=== PATIENT | male | born 1985 | race Caucasian/White ===

== ENCOUNTER 2020-10-09 11:26 | Emergency (ER) | payer OTHER ==
[~2020-10-09] VITALS: Ht 175.3 cm; Wt 90.7 kg
[~2020-10-09 11:26] MED LIST: NOHOMEMEDICATIONS; NORCO 5-325 TA1 EACH PO; VICOPROFEN 2001 EACH PO
[2020-10-09] MEDS ORDERED: NORCO 5-325 TA1 EAC2 PO (12:18)
[2020-10-09] MEDS ORDERED: PREDNISONE 20 M20 M1 PO (12:18)
[2020-10-09] MEDS ORDERED: FLEXERIL PO (12:18)
[2020-10-09 12:30] VITALS: BP 138/68
== END 2020-10-09 12:31 | disposition home or self-care (01) ==
LOC: M.ERS 11:26
DX: M54.5 Low back pain (principal)

== ENCOUNTER 2021-05-08 13:29 | Emergency (ER) | payer OTHER ==
[~2021-05-08] VITALS: Ht 175.3 cm; Wt 78.9 kg
[~2021-05-08 13:29] MED LIST changes: +FLEXERIL PO; +NORCO 5-325 TA1 EAC2 PO; +PREDNISONE 20 M20 M1 PO
[2021-05-08] MEDS ORDERED: BACTRIM DS TAB1 EACH PO (14:01)
[2021-05-08] MEDS ORDERED: HYDROCODON-ACE1 EAC7 PO (14:01)
[2021-05-08 14:21] VITALS: BP 127/80
== END 2021-05-08 14:22 | disposition home or self-care (01) ==
LOC: M.ERS 13:29
DX: L72.3 Sebaceous cyst (principal)